=== PATIENT | male | born 1965 | race Hispanic/Latino ===

== ENCOUNTER 2019-03-04 14:22 | Observation (INO) | payer OTHER ==
[~2019-03-04] VITALS: Ht 175.3 cm; Wt 99.8 kg
[~2019-03-04 14:22] MED LIST: JANUVIA100 MG PO; MORPHINE SULFATE 2 MG/ML SYR 1ML IV PRN
[2019-03-04] MEDS ORDERED: HYDROMORPHONE 1MG/1ML INJ IV STA (14:48)
[2019-03-04] MEDS ORDERED: ONDANSETRON HCL INJ 2MG/ML 2ML 2 MG/ML VIAL IV STA (14:48)
[2019-03-04 15:11] LABS: BASOPHILS % 0.5 % (0.0-1.0); EOSINOPHILS # (AUTO) 0.1 (0.0-0.4); EOSINOPHILS % 0.7 % (0.0-6.0); HEMATOCRIT 38.7 % (38.2-49.6); HEMOGLOBIN 14.1 g/dL (14.0-18.0); LYMPHOCYTES # (AUTO) 1.8 (1.0-3.2); MEAN CORPUSCULAR HEMOGLOBIN 32.6 pg (28-32); MEAN CORPUSCULAR HGB CONC 36.4 g/dL (31-35); MEAN CORPUSCULAR VOLUME 89.6 fL (81-99); MONOCYTES # (AUTO) 0.4 (0.2-0.8); MONOCYTES % 5.6 % (4.4-11.3); NEUTROPHILS % 68.5 % (38.7-80.0); PLATELET COUNT 197 x10e3/uL (140-360); RED BLOOD COUNT 4.32 x10e6/uL (4.3-5.7); RED CELL DISTRIBUTION WIDTH 12.4 % (11.7-14.4)
[2019-03-04] MEDS ORDERED: SODIUM CHLORIDE 0.9% 1000ML 1,000 ML IV STA (15:16)
[2019-03-04 15:28] LABS: ALBUMIN 3.7 g/dL (3.5-5.0); ALBUMIN/GLOBULIN RATIO 0.9 (0.8-2.0); ANION GAP 17.7 mmol/L (8-16); CREATININE, SERUM 1.29 mg/dL (0.72-1.25); POTASSIUM 3.7 mmol/L (3.5-5.1)
--- NOTE | 2019-03-04 16:13 | Diagnostic Imaging Report ---
EXAM: CT Abdomen and Pelvis WITHOUT intravenous contrast INDICATION: Flank pain COMPARISON: None. TECHNIQUE: Abdomen and pelvis were scanned utilizing a multidetector helical scanner from the lung base to the pubic symphysis without administration of IV contrast. Coronal and sagittal reformations were obtained. IV CONTRAST: None ORAL CONTRAST: None COMPLICATIONS: None RADIATION DOSE: Total DLP: 1005.0 mGy*cm Dose modulation, iterative reconstruction, and/or weight based adjustment of the mA/kV was utilized to reduce the radiation dose to as low as reasonably achievable. FINDINGS: LOWER THORAX: Minimal bibasilar dependent subsegmental atelectasis. Coronary artery atherosclerotic calcifications. HEPATOBILIARY: No focal hepatic lesions. The gallbladder appears unremarkable. Focal area in the distal common bile duct, possibly related to recent instrumentation. SPLEEN: No splenomegaly. PANCREAS: No focal masses or ductal dilatation. ADRENALS: 1.5 cm left adrenal myelolipoma. No right adrenal nodule. KIDNEYS/URETERS: No hydronephrosis, stones, or solid mass lesions. PELVIC ORGANS/BLADDER: Very distended urine filled bladder. PERITONEUM / RETROPERITONEUM: No free air or fluid. LYMPH NODES: No lymphadenopathy. VESSELS: Scattered atherosclerotic calcifications of the nonaneurysmal abdominal aorta and major branches. GI TRACT: Mild diverticulosis. No CT evidence of diverticulitis. No abnormal bowel wall thickening. No bowel obstruction. Normal appendix. BONES AND SOFT TISSUES: No acute osseous injury. No suspicious lytic or blastic lesions. IMPRESSION: No renal calculi or hydronephrosis. Markedly distended bladder. Atherosclerotic calcifications including of the coronary arteries. Signed by: Dimas Nieves MD on 03/04/2019 4:10 PM
--- NOTE | 2019-03-04 16:15 | Diagnostic Imaging Report ---
EXAM: US ABDOMEN COMPLETE DATE: 03/04/2019 12:00 AM INDICATION: Abdominal pain COMPARISON: Abdominal CT of the same day. TECHNIQUE: Transverse and longitudinal kennedy scale and color doppler sonographic images of the upper abdomen were obtained. FINDINGS: There is no evidence of fluid or masses seen in the area of clinical concern in the right lower quadrant. LIVER 14.1 cm in the right midclavicular line. Normal echogenicity of the liver with normal contour, no masses. SPLEEN 10.7 cm in maximum diameter. Normal echogenicity, no masses. GALLBLADDER No gallbladder wall thickening, distension, stone, or pericholecystic fluid. NEgative reported sonographic Pineda's sign. Gallbladder wall measures 4 mm. BILE DUCTS No intra nor extra-hepatic biliary dilation. Common bile duct measures 4 mm PANCREAS: Limited visualization due to overlying bowel gas. RIGHT KIDNEY: 12.5 cm Echogenicity: Normal Collecting System: No hydronephrosis Stones: None Cyst/Mass: None LEFT KIDNEY: 12.4 cm Echogenicity: Normal Collecting System: No hydronephrosis Stones: None Cyst/Mass: None VESSELS: Aorta: Limited evaluation due to overlying bowel gas. Inferior Vena Cava: Visualized portions are normal Main Portal Vein: 0.9 cm, normal size with hepatopetal flow. FREE FLUID: None IMPRESSION: Unremarkable abdominal ultrasound. Signed by: Dimas Nieves MD on 03/04/2019 4:12 PM
[2019-03-04] MEDS ORDERED: VITAMIN D2 PO (16:20)
[2019-03-04] MEDS ORDERED: METOPROLOL SUCC25 MG PO (16:20)
[2019-03-04] MEDS ORDERED: SIMVASTATIN20 MG PO (16:20)
[2019-03-04] MEDS ORDERED: LYRICA50 MG PO (16:20)
[2019-03-04] MEDS ORDERED: ASPIR-LOW81 MG PO (16:20)
[2019-03-04] MEDS ORDERED: PIOGLITAZONE HC45 MG PO (16:20)
[2019-03-04] MEDS ORDERED: LOSARTAN POTAS100 MG PO (16:20)
[2019-03-04] MEDS ORDERED: MORPHINE SULFATE INJ 4 MG/ML INJ 1ML IV ONE (16:30)
[2019-03-04] MEDS ORDERED: DICYCLOMINE HCL 20 MG/2 ML VIAL IM ONE (16:30)
[2019-03-04] MEDS ORDERED: PROMETHAZINE 12.5MG/ NACL 0.9% 12.5 MG/50 ML BAG IV ONE (16:30)
[2019-03-04] MEDS ORDERED: DONNATAL/LIDOCAINE/MAALOX 30 ML SUSP PO ONE (16:30)
[2019-03-04] MEDS ORDERED: MORPHINE SULFATE 2 MG/ML SYR 1ML IV ONE (16:45)
[2019-03-04 16:48] LABS: BILIRUBIN,URINE NEGATIVE (NEGATIVE); CLARITY,URINE CLEAR (CLEAR); COLOR,URINE YELLOW (YELLOW); KETONES,URINE NEGATIVE (NEGATIVE); LEUKOCYTE ESTERASE ,URINE NEGATIVE (NEGATIVE); NITRITE,URINE NEGATIVE (NEGATIVE); PROTEIN,URINE DIPSTICK 2+ (NEGATIVE); URINE UROBILINOGEN 0.2 mg/dL (0.2 - 1)
[2019-03-04 17:09] LABS: BACTERIA,URINE RARE /HPF; EPITHELIAL CELLS,URINE FEW /LPF
[2019-03-04] MEDS ORDERED: HYDRALAZINE HCL 20 MG/ML VIAL IV ONE (17:15)
[2019-03-04] MEDS ORDERED: ONDANSETRON HCL INJ 2MG/ML 2ML 2 MG/ML VIAL IV PRN (17:45)
[2019-03-04] MEDS ORDERED: HYDRALAZINE HCL 20 MG/ML VIAL IV PRN (17:45)
[2019-03-04] MEDS: SODIUM CHLORIDE 0.9% 1000ML 1,000 ML IV SCH (18:19)
[2019-03-04] MEDS: FAMOTIDINE 20 MG/2 ML VIAL IV SCH (18:19)
--- OUTSIDE RECORDS SUMMARY | 2019-03-04 19:51 | XMS REPORT ---
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 Allergies, Adverse Reactions, Alerts This patient has no known allergies or adverse reactions. Medications This patient has no known medications. Results Test Description Test Time Test Comments Text Results Atomic Results Result Comments US ABDOMEN COMPLETE 2019-03-04 16:10:00 [place] [address] Patient Name: CLAIRE BOB MR #: [id number] : 1965 Age/Sex: 53/M Req #: [id number] Adm Physician: Ordered by: FAIZA RAMIREZ MD Report #: [id number] Location: ER Room/Bed: Procedure: [id number] US/US ABDOMEN COMPLETE Exam Date: 03/04/19 Exam Time: 1532 REPORT STATUS: Signed EXAM: US ABDOMEN COMPLETE DATE: 03/04/2019 12:00 AM INDICATION: Abdominal pain COMPARISON: Abdominal CT of the same day. TECHNIQUE: Transverse and longitudinal kennedy scale and color doppler sonographic images of the upper abdomen were obtained. FINDINGS: There is no evidence of fluid or masses seen in the area of clinical concern in the right lower quadrant. LIVER 14.1 cm in the right midclavicular line. Normal echogenicity of the liver with normal contour, no masses. SPLEEN 10.7 cm in maximum diameter. Normal echogenicity, no masses. GALLBLADDER No gallbladder wall thickening, distension, stone, or pericholecystic fluid. NEgative reported sonographic Pineda's sign. Gallbladder wall measures 4 mm. BILE DUCTS No intra nor extra-hepatic biliary dilation. Common bile duct measures 4 mm PANCREAS: Limited visualization due to overlying bowel gas. RIGHT KIDNEY: 12.5 cm Echogenicity: Normal Collecting System: No hydronephrosis Stones: None Cyst/Mass: None LEFT KIDNEY: 12.4 cm Echogenicity: Normal Collecting System: No hydronephrosis Stones: None Cyst/Mass: None VESSELS: Aorta: Limited evaluation due to overlying bowel gas. Inferior Vena Cava: Visualized portions are normal Main Portal Vein: 0.9 cm, normal size with hepatopetal flow. FREE FLUID: None IMPRESSION: Unremarkable abdominal ultrasound. Signed by: Aubrey Brown MD on 03/04/2019 4:12 PM Dictated By: AUBREY BROWN MD 161 Transcribed By: JESSICA on 03/04/19 1612 COPY TO: FAIZA RAMIREZ MD CT ABDOMEN/PELVIS WO 2019-03-04 16:03:00 [place] [address] Patient Name: CLAIRE BOB MR #: [id number] : 1965 Age/Sex: 53/M Req #: [id number] Adm Physician: Ordered by: FAIZA RAMIREZ MD Report #: [id number] Location: ER Room/Bed: Procedure: [id number] CT/CT ABDOMEN/PELVIS WO Exam Date: 03/04/19 Exam Time: 1510 REPORT STATUS: Signed EXAM: CT Abdomen and Pelvis WITHOUT intravenous c ontrast INDICATION: Flank pain COMPARISON: None. TECHNIQUE: Abdomen and pelvis were scanned utilizing a multidetector helical scanner from the lung base to the pubic symphysis without administration of IV contrast. Coronal and sagittal reformations were obtained. IV CONTRAST: None ORAL CONTRAST: None COMPLICATIONS: None RADIATION DOSE: Total DLP: 1005.0 mGy*cm Dose modulation, iterative reconstruction, and/or weight based adjustment of the mA/kV was utilized to reduce the radiation dose to as low as reasonably achievable. FINDINGS: LOWER THORAX: Minimal bibasilar dependent subsegmental atelectasis. Coronary artery atherosclerotic calcifications. HEPATOBILIARY: No focal hepatic lesions. The gallbladder appears unremarkable. Focal area in the distal common bile duct, possibly related to recent instrumentation. SPLEEN: No splenomegaly. PANCREAS: No focal masses or ductal dilatation. ADRENALS: 1.5 cm left adrenal myelolipoma. No right adrenal nodule. KIDNEYS/URETERS: No hydronephrosis, stones, or solid mass lesions. PELVIC ORGANS/BLADDER: Very distended urine filled bladder. PERITONEUM / RETROPERITONEUM: No free air or fluid. LYMPH NODES: No lymphadenopathy. VESSELS: Scattered atherosclerotic calcifications of the nonaneurysmal abdominal aorta and major branches. GI TRACT: Mild diverticulosis. No CT evidence of diverticulitis. No abnormal bowel wall thickening. No bowel obstruction. Normal appendix. BONES AND SOFT TISSUES: No acute osseous injury. No suspicious lytic or blastic lesions. IMPRESSION: No renal calculi or hydronephrosis. Markedly distended bladder. Atherosclerotic calcifications including of the coronary arteries. Signed by: Aubrey Brown MD on 03/04/2019 4:10 PM Dictated By: AUBREY BROWN MD 1610 Transcribed By: JESSICA on 03/04/19 1610 COPY TO: FAIZA RAMIREZ MD
[2019-03-04] MEDS ORDERED: DONNATAL/LIDOCAINE/MAALOX 30 ML SUSP PO SCH ×2 (21:00)
[2019-03-04] MEDS ORDERED: MORPHINE SULFATE INJ 4 MG/ML INJ 1ML IV PRN (21:00)
[2019-03-04 21:27] VITALS: BP 190/89
[2019-03-04 22:01] VITALS: BP 190/89
[2019-03-04 22:12] VITALS: BP 190/89
--- NOTE | 2019-03-04 22:15 | NUR ---
REPORT RECEIVED FROM NURSE MUÑOZ. PATIENT ADMITTED IN UNIT @2114 BY BILLIE. PATIENT ALERT/ORIENTED X3. COMPLAINING PAIN ON HIS ABDOMEN. ER MEDICATED HIM WITH PAIN MEDICINE.PATIENT CONTINUED ON 2LITERS OXYGEN VIA NASAL CANULA. RESPIRATION EVEN AND UNLABORED. HEAD TO TOE ASSESSMENT COMPLETED, NO SKIN BREAKDOWN NOTED. BED IN LOWER POSITION,LOCKED. CALL [facility] WITHIN REACH. PATIENT INSTRUCTED TO CALL FOR HELP NEEDED, VERBALIZED AND UNDERSTAND.
[2019-03-04] MEDS ORDERED: MORPHINE SULFATE 2 MG/ML SYR 1ML IV PRN (23:00)
[2019-03-05] VITALS: BP 93/55
[2019-03-05 04:22] VITALS: BP 109/64
[2019-03-05] MEDS: SODIUM CHLORIDE 0.9% 1000ML 1,000 ML IV SCH (04:35)
[2019-03-05 05:46] LABS: BASOPHILS % 0.3 % (0.0-1.0); EOSINOPHILS % 0.1 % (0.0-6.0); HEMATOCRIT 37.8 % (38.2-49.6); HEMOGLOBIN 13.2 g/dL (14.0-18.0); LYMPHOCYTES # (AUTO) 1.7 (1.0-3.2); LYMPHOCYTES % 17.3 % (18.0-39.1); MEAN CORPUSCULAR HEMOGLOBIN 32.4 pg (28-32); MEAN CORPUSCULAR HGB CONC 34.9 g/dL (31-35); MEAN CORPUSCULAR VOLUME 92.9 fL (81-99); MONOCYTES # (AUTO) 0.9 (0.2-0.8); MONOCYTES % 8.6 % (4.4-11.3); NEUTROPHILS # (AUTO) 7.2 (2.1-6.9); NEUTROPHILS % 73.2 % (38.7-80.0); PLATELET COUNT 209 x10e3/uL (140-360); RED BLOOD COUNT 4.07 x10e6/uL (4.3-5.7); RED CELL DISTRIBUTION WIDTH 13.1 % (11.7-14.4)
[2019-03-05 06:08] LABS: ANION GAP 15.6 mmol/L (8-16); CALCIUM 8.8 mg/dL (8.4-10.2); CREATININE, SERUM 1.55 mg/dL (0.72-1.25); POTASSIUM 4.6 mmol/L (3.5-5.1)
--- NOTE | 2019-03-05 07:02 | NUR ---
Report given to oncoming MARYJANE Gonzales, walking round done.
[2019-03-05 08:13] VITALS: BP 103/57
[2019-03-05 08:30] VITALS: BP 103/57
[2019-03-05] MEDS: FAMOTIDINE 20 MG/2 ML VIAL IV SCH (08:30)
[2019-03-05] MEDS ORDERED: METOPROLOL SUCCINATE 50 MG TAB XL PO SCH (10:30)
[2019-03-05] MEDS ORDERED: PIOGLITAZONE HCL 15 MG TAB PO SCH (11:30)
[2019-03-05 11:52] VITALS: BP 131/69
[2019-03-05] MEDS ORDERED: INSULIN ASPART 70/30 100 UNITS/ML VIAL SC NR (13:30)
[2019-03-05] MEDS ORDERED: ONDANSETRON HCL 4 MG ORAL DISINTEGRATING TAB PO PRN (14:00)
--- NOTE | 2019-03-05 14:10 | NUR ---
patient alert and oriented. discharge instructions given at this time, patient verbalized understanding. IV discontinued, catheter in tact and small dressing applied. patient refused wheelchair assistance but will ambulate to personal auto for cousin to drive home.
[2019-03-05] MEDS ORDERED: PREGABALIN 50 MG CAP PO SCH (17:00)
[2019-03-05] MEDS ORDERED: SIMVASTATIN 20 MG TAB PO SCH (21:00)
[2019-03-06] MEDS ORDERED: ASPIRIN 81 MG CHEW TAB PO SCH (09:00)
[2019-03-06] MEDS ORDERED: METOPROLOL SUCCINATE 25 MG TAB XL PO SCH (09:00)
--- NOTE | 2019-03-06 22:45 | Discharge Summary ---
ADMISSION DIAGNOSES: Hypertensive urgency, possible kidney stone, type 2 diabetes, acute kidney injury, neuropathy. DISCHARGE DIAGNOSES: Hypertensive urgency, possible kidney stone, type 2 diabetes, acute kidney injury, neuropathy. HISTORY: Type 2 diabetes and hypertension. SURGICAL HISTORY: Bilateral cataract surgery. FAMILY HISTORY: The patient's sister and grandpa had diabetes. The patient's mom had cancer. SOCIAL HISTORY: The patient drinks 2-3 beers a day. HOSPITAL COURSE: A 53-year-old male admits with complaints of sharp, constant right-sided back pain that began last night. He had associated nausea with dry heaving. He denies dysuria, fever, and hematuria. UA in the ER shows 1+ blood. The pain and nausea have now resolved and the blood pressure has dropped to normal ranges. On admission in the ER, his blood pressure was 190/103. Ultrasound of the abdomen was unremarkable. CT of the abdomen showed no renal calculi or hydronephrosis, markedly distended bladder. As the blood pressure is now normalized and the pain is gone, the patient will discharge home and follow up with primary care in 1 to 2 weeks. The patient understands discharge instructions and agrees to plan. Vital signs are stable. The patient is afebrile. Dictated by Myrna Hernandez NP MD CHARLIE Ferrara/JONATHAN /[id number]
== END 2019-03-05 14:15 | disposition home or self-care (01) ==
LOC: ER 14:22 → ERHOLD 17:37 → IMCU 21:22
PROVIDERS: ADMIT Internal Medicine; ATTEND Internal Medicine
DX: I16.0 Hypertensive urgency (principal); R10.11 Right upper quadrant pain; I10 Essential (primary) hypertension; Z72.89 Other problems related to lifestyle; Z83.3 Family history of diabetes mellitus; Z80.9 Family history of malignant neoplasm, unspecified; N17.9 Acute kidney failure, unspecified; E78.5 Hyperlipidemia, unspecified; E11.42 Type 2 diabetes mellitus with diabetic polyneuropathy; Z79.82 Long term (current) use of aspirin
CPT/HCPCS: 36415 ×2; 74176; 76700; 80048; 80053; 81001; 82150; 82948 ×2; 83690; 85025 ×2; 87086; 99284; G0378 ×2; J0360; J0500; J1170; J1815; J2270 ×2; J2405; J2550; J7030 ×2